=== PATIENT | male | born 1990 | race Caucasian/White ===

== ENCOUNTER 2022-11-25 10:48 | Emergency (ER) | payer SELFPAY ==
[2022-11-25] MEDS ORDERED: Ketorolac Tromethamine 30 MG/ML VIAL ONE (11:36)
== END 2022-11-25 15:28 | disposition home or self-care (01) ==
LOC: CSHERS 10:48
DX: M54.6 Pain in thoracic spine (principal); M62.838 Other muscle spasm; F17.210 Nicotine dependence, cigarettes, uncomplicated
CPT/HCPCS: 72070; 72100; 96372; J1885